=== PATIENT | female | born 1970 | race Caucasian/White ===

== ENCOUNTER 2017-08-31 14:48 | Emergency (ER) | payer MEDICAID ==
[~2017-08-31] VITALS: Ht 165.1 cm; Wt 79.0 kg
[~2017-08-31 14:48] MED LIST: ALBU18HF INH; ASPI-496 PO; DULO60CA7 PO; ESOM40CA PO; GABA300C10 PO; HYDR-3240 PO; METH750T2 PO; METO-93 PO; RIZA10TA34 PO; SIMV20TA3 PO; SUMA25TA3 PO; TOPI50TA35 PO; TRAZ100T15 PO
[2017-08-31 14:52] VITALS: BP 121/75
[2017-08-31] MEDS ORDERED: BACITRACIN ZINC OINT 500U/GM, 0.9 GM ONE (15:29)
== END 2017-08-31 15:47 | disposition home or self-care (01) ==
LOC: ED 15:41
DX: L03.113 Cellulitis of right upper limb (principal); L03.115 Cellulitis of right lower limb; M54.9 Dorsalgia, unspecified; G89.29 Other chronic pain; I10 Essential (primary) hypertension; E11.9 Type 2 diabetes mellitus without complications; J44.9 Chronic obstructive pulmonary disease, unspecified; K22.70 Barrett's esophagus without dysplasia; Z90.49 Acquired absence of other specified parts of digestive tract
CPT/HCPCS: 99283

== ENCOUNTER 2017-11-29 13:37 | Emergency (ER) | payer MEDICAID ==
[~2017-11-29] VITALS: Ht 165.1 cm; Wt 78.4 kg
[2017-11-29 13:46] VITALS: BP 106/60
== END 2017-11-29 17:02 | disposition left against medical advice (07) ==
LOC: ED 16:06
DX: J11.1 Influenza due to unidentified influenza virus with other respiratory manifestations (principal); Z53.21 Procedure and treatment not carried out due to patient leaving prior to being seen by health care provider
CPT/HCPCS: 99285

== ENCOUNTER 2018-04-08 17:42 | Emergency (ER) | payer MEDICAID ==
[~2018-04-08] VITALS: Ht 165.1 cm; Wt 84.9 kg
[2018-04-08 18:13] VITALS: BP 120/85
== END 2018-04-08 18:46 | disposition home or self-care (01) ==
LOC: ED 18:26
DX: B02.9 Zoster without complications (principal); I10 Essential (primary) hypertension; J44.9 Chronic obstructive pulmonary disease, unspecified; F17.200 Nicotine dependence, unspecified, uncomplicated; Z88.0 Allergy status to penicillin; Z88.5 Allergy status to narcotic agent
CPT/HCPCS: 93005; 99283

== ENCOUNTER 2018-04-29 19:54 | Emergency (ER) | payer MEDICAID ==
[~2018-04-29] VITALS: Ht 165.1 cm; Wt 81.5 kg
[2018-04-29] MEDS ORDERED: ONDANSETRON ODT 4 MG PO ONE (20:30)
[2018-04-29] MEDS ORDERED: ONDANSETRON ODT 4 MG ONE (20:41)
[2018-04-29 20:44] LABS: BASOPHILS # (AUTO) 0.05 x10^3/uL (0-0.1); BASOPHILS % (AUTO) 1 % (0-1); EOSINOPHILS # (AUTO) 0.08 x10^3/uL (0-0.4); EOSINOPHILS % (AUTO) 1 % (1-7); LYMPHOCYTES # (AUTO) 2.72 x10^3/uL (1-3.4); LYMPHOCYTES % (AUTO) 34 % (22-44); MD NO; MEAN CORPUSCULAR HEMOGLOBIN 30.8 pg (27.0-34.8); MEAN CORPUSCULAR HGB CONC 33.4 g/dL (32.4-35.8); MEAN CORPUSCULAR VOLUME 92.1 fL (80-100); MEAN PLATELET VOLUME 8.2 fL (7.4-10.4); MONOCYTES # (AUTO) 0.63 x10^3/uL (0.2-0.8); MONOCYTES % (AUTO) 8 % (2-9); NEUTROPHILS # (AUTO) 4.44 x10^3/uL (1.8-6.8); NEUTROPHILS % (AUTO) 56 % (42-75); PLATELET COUNT 284 x10^3/uL (130-400); RED BLOOD COUNT 4.42 x10^6/uL (3.82-5.3); RED CELL DISTRIBUTION WIDTH 12.4 % (9.6-15.2)
[2018-04-29 20:57] LABS: CHLORIDE 105 mmol/L (98-107)
[2018-04-29 20:58] LABS: ALANINE AMINOTRANSFERASE 29 U/L (12-78); ALBUMIN 3.9 g/dL (3.4-5.0); ANION GAP 5 mmol/L (5-15); CALCIUM 9.4 mg/dL (8.5-10.1); CREATININE 0.75 mg/dL (0.55-1.02)
[2018-04-29 21:00] LABS: ALKALINE PHOSPHATASE 77 U/L (45-117); BILIRUBIN,TOTAL 0.4 mg/dL (0.2-1.0); TOTAL PROTEIN 7.6 g/dL (6.4-8.2)
[2018-04-29 21:43] VITALS: BP 121/68
== END 2018-04-29 21:46 | disposition home or self-care (01) ==
LOC: ED 21:35
DX: A09 Infectious gastroenteritis and colitis, unspecified (principal); I10 Essential (primary) hypertension; E11.9 Type 2 diabetes mellitus without complications; J44.9 Chronic obstructive pulmonary disease, unspecified; F17.200 Nicotine dependence, unspecified, uncomplicated; Z88.2 Allergy status to sulfonamides; Z88.0 Allergy status to penicillin
CPT/HCPCS: 36415; 80053; 83690; 85025; 99284; Q0162

== ENCOUNTER 2019-01-12 11:42 | Observation (INO) | payer MEDICAID ==
[~2019-01-12] VITALS: Ht 165.1 cm; Wt 84.9 kg
[~2019-01-12 11:42] MED LIST changes: +TRAZ-137 PO; -TRAZ100T15 PO
[2019-01-12] MEDS ORDERED: ASPIRIN 81 MG TABLET CHEW ONE (12:23)
[2019-01-12] MEDS ORDERED: NITROGLYCERIN SINGLE TAB 0.4 MG SL ONE (12:23)
[2019-01-12] MEDS: NITROGLYCERIN SINGLE TAB 0.4 MG SL PRN ×3 (12:26→12:38)
[2019-01-12] MEDS ORDERED: SODIUM CHLORIDE FLUSH 10ML SYR IVF ONE (12:30)
[2019-01-12] MEDS ORDERED: ASPIRIN 81 MG TABLET CHEW PO ONE (12:30)
[2019-01-12] MEDS ORDERED: DULO60CA7 PO (13:16)
[2019-01-12] MEDS ORDERED: RANI-448 PO (13:16)
[2019-01-12 13:28] LABS: BASOPHILS # (AUTO) 0.03 x10^3/uL (0-0.1); BASOPHILS % (AUTO) 0 % (0-1); EOSINOPHILS # (AUTO) 0.08 x10^3/uL (0-0.4); EOSINOPHILS % (AUTO) 1 % (1-7); LYMPHOCYTES # (AUTO) 2.29 x10^3/uL (1-3.4); LYMPHOCYTES % (AUTO) 35 % (22-44); MD NO; MEAN CORPUSCULAR HEMOGLOBIN 30.9 pg (27.0-34.8); MEAN CORPUSCULAR HGB CONC 34.2 g/dL (32.4-35.8); MEAN CORPUSCULAR VOLUME 90.4 fL (80-100); MEAN PLATELET VOLUME 8.4 fL (7.4-10.4); MONOCYTES # (AUTO) 0.57 x10^3/uL (0.2-0.8); MONOCYTES % (AUTO) 9 % (2-9); NEUTROPHILS # (AUTO) 3.54 x10^3/uL (1.8-6.8); NEUTROPHILS % (AUTO) 54 % (42-75); PLATELET COUNT 282 x10^3/uL (130-400); RED BLOOD COUNT 4.31 x10^6/uL (3.82-5.3); RED CELL DISTRIBUTION WIDTH 12.8 % (9.6-15.2)
--- NOTE | 2019-01-12 13:36 | NUR ---
pt stated still have headache but better now
[2019-01-12 13:37] LABS: ALBUMIN 3.8 g/dL (3.4-5.0); ANION GAP 5 mmol/L (5-15); CALCIUM 8.8 mg/dL (8.5-10.1); CHLORIDE 111 mmol/L (98-107); CREATININE 0.67 mg/dL (0.55-1.02)
[2019-01-12 13:40] LABS: TROPONIN I < 0.015 ng/mL (0.000-0.045)
[2019-01-12] MEDS ORDERED: ACETAMINOPHEN 500 MG TABLET ONE (13:56)
[2019-01-12] MEDS ORDERED: ACETAMINOPHEN 500 MG TABLET PO ONE (14:00)
--- NOTE | 2019-01-12 14:01 | NUR ---
LATE NOTE ENTRY FOR 1219: First contact with pt. Pt c/o 08/15 center chest pain that began at 0900 today. Pt states it is a dull and tight feeling that won't go away. Pt c/o nausea and a headache. Pt connected to all monitors. Call light within reach. All safety measures in place. Pt's friend at bedside.
--- NOTE | 2019-01-12 14:02 | NUR ---
LATE NOTE ENTRY FOR 1238: Pt recieved medication per [facility]. Pt's chest pain resolved after all doses were provided. Pt c/o 0/10 chest pain at this time.
--- NOTE | 2019-01-12 14:03 | NUR ---
Pt resting on gurney connected to all monitors. Provided pt medication per [facility] for c/o headache. Call light within reach. NADN. No needs expressed.
[2019-01-12] MEDS ORDERED: ONDANSETRON ODT 4 MG ONE (14:12)
--- NOTE | 2019-01-12 14:27 | NUR ---
Went to provide medication per [facility]. Pt not in room. Pt transported on gurney to imaging.
[2019-01-12] MEDS ORDERED: ONDANSETRON ODT 4 MG PO ONE (14:30)
--- NOTE | 2019-01-12 14:32 | NUR ---
Pt back to room from imaging. Provided pt medication per [facility].
[2019-01-12] MEDS ORDERED: NITROGLYCERIN 0.4 MG BOTTLE (25 TABS) SL PRN (15:00)
[2019-01-12] MEDS ORDERED: SUMATRIPTAN 25 MG TABLET PO PRN (15:00)
[2019-01-12] MEDS ORDERED: DOCUSATE 100 MG CAPSULE PO PRN (15:00)
[2019-01-12] MEDS ORDERED: ALBUTEROL SULFATE 2.5 MG/3 ML NPPB SCH (15:00)
[2019-01-12] MEDS ORDERED: ONDANSETRON 2MG/ML, 2ML IVPush PRN (15:00)
[2019-01-12] MEDS ORDERED: ENOXAPARIN 40 MG/0.4 ML SQ SCH (15:00)
[2019-01-12] MEDS ORDERED: MAALOX/HYOSCYAMINE/LIDOCAINE 45 ML BTL PO ONE (15:00)
--- NOTE | 2019-01-12 15:05 | NUR ---
Provided report to YVROSE Purvis. All questions answered. Pt ready to transfer to floor from ED.
[2019-01-12] MEDS ORDERED: SUMATRIPTAN 50 MG TABLET ONE (16:29)
[2019-01-12] MEDS: GABAPENTIN 300 MG CAPSULE PO SCH ×2 (16:42→20:44)
[2019-01-12 16:50] VITALS: BP 118/74
[2019-01-12 18:51] VITALS: BP 126/79
[2019-01-12] MEDS: ACETAMINOPHEN 325 MG TABLET PO PRN (20:44)
[2019-01-12] MEDS: FAMOTIDINE 20 MG TABLET PO SCH (20:44)
[2019-01-12 21:17] LABS: TROPONIN I < 0.015 ng/mL (0.000-0.045)
[2019-01-13 02:59] VITALS: BP 108/67
[2019-01-13 06:25] LABS: CHOL/HDL RATIO 5.8; CHOLESTEROL, TOTAL 233 mg/dL (140-239); HDL CHOL % 17 % (28-40); HDL CHOLESTEROL (DIRECT) 40 mg/dL (40-60); LDL CHOLESTEROL,CALCULATED 150 mg/dL (54-169); LDL/HDL RATIO 3.8 (0.5-3.0); TRIGLYCERIDES 215 mg/dL (50-200); TROPONIN I < 0.015 ng/mL (0.000-0.045); VLDL CHOLESTEROL 43 mg/dL (0-25)
[2019-01-13 06:35] LABS: HEMOGLOBIN A1C 6.3 % (4.2-6.3)
[2019-01-13] MEDS: ACETAMINOPHEN 325 MG TABLET PO PRN (06:35)
[2019-01-13 06:53] VITALS: BP 104/68
[2019-01-13] MEDS ORDERED: PANTOPROZOLE 40MG TABLET PO SCH (07:30)
[2019-01-13] MEDS ORDERED: PANT40TA5 PO (08:08)
[2019-01-13] MEDS ORDERED: SUMATRIPTAN 50 MG TABLET ONE (08:35)
[2019-01-13] MEDS: FAMOTIDINE 20 MG TABLET PO SCH (08:37)
[2019-01-13] MEDS: GABAPENTIN 300 MG CAPSULE PO SCH (08:37)
[2019-01-13] MEDS ORDERED: SUMATRIPTAN 25 MG TABLET PO SCH (09:00)
[2019-01-13] MEDS ORDERED: SIMVASTATIN 20 MG TABLET PO SCH (09:00)
[2019-01-13] MEDS ORDERED: DULOXETINE 30 MG CAPSULE.DR PO SCH (09:00)
== END 2019-01-13 15:39 | disposition home or self-care (01) ==
LOC: ED 13:55 → EDIP 14:31 → ED 14:40 → 4WST 15:25
PROVIDERS: ADMIT Hospitalist; ATTEND Hospitalist
DX: R07.89 Other chest pain (principal); K21.9 Gastro-esophageal reflux disease without esophagitis; K22.70 Barrett's esophagus without dysplasia; E11.9 Type 2 diabetes mellitus without complications; J44.9 Chronic obstructive pulmonary disease, unspecified; E66.01 Morbid (severe) obesity due to excess calories; E78.00 Pure hypercholesterolemia, unspecified; F17.200 Nicotine dependence, unspecified, uncomplicated; G25.81 Restless legs syndrome; G43.909 Migraine, unspecified, not intractable, without status migrainosus; I10 Essential (primary) hypertension; I49.9 Cardiac arrhythmia, unspecified; Z82.49 Family history of ischemic heart disease and other diseases of the circulatory system
CPT/HCPCS: 36415; 71045; 71275; 80048; 80061; 82040; 82550; 82552; 83036; 84484; 85025; 85379; 93005; 96372; 99284; G0378; J1650; Q0162

== ENCOUNTER 2019-04-15 07:30 | Emergency (ER) | payer MEDICAID ==
[~2019-04-15] VITALS: Ht 162.6 cm; Wt 88.0 kg
[~2019-04-15 07:30] MED LIST changes: +PANT40TA5 PO; +RANI-448 PO
--- NOTE | 2019-04-15 07:31 | NUR ---
PT BIB [facility], C/O FLANK PAIN. STATES "IT STARTED THIS MORNING" PT JORGE ALBERTO N/V, ZHANG, TRAUMA, DIZZINESS. PT RECIEVED FENTANYL EN ROUTE PER EMS REPORT. PT DOES CONTINUE TO C/O 8/10 L FLANK PAIN. ER PROVIDER IN TO SEE PT. PT TO GO FOR CT ABD.
[2019-04-15] MEDS ORDERED: SODIUM CHLORIDE FLUSH 10ML SYR IVF ONE (08:00)
[2019-04-15] MEDS ORDERED: KETOROLAC 30 MG/1 ML IVPush ONE (08:00)
[2019-04-15] MEDS ORDERED: ONDANSETRON 2MG/ML, 2ML IVPush ONE (08:00)
[2019-04-15] MEDS ORDERED: TAMSULOSIN 0.4 MG CAP.ER.24H PO ONE (08:00)
[2019-04-15] MEDS ORDERED: TAMSULOSIN 0.4 MG CAP.ER.24H ONE (08:07)
--- NOTE | 2019-04-15 08:18 | NUR ---
PATIENT FROM CT. MEDICATION GIVEN. UA COLLECTED
[2019-04-15] MEDS ORDERED: KETOROLAC 30 MG/1 ML ONE (08:26)
[2019-04-15] MEDS ORDERED: ONDANSETRON 2MG/ML, 2ML ONE (08:26)
--- NOTE | 2019-04-15 08:29 | NUR ---
LATE ENTRY 0810. PT BACK FROM CT, AWAITING RESULTS.
[2019-04-15] MEDS ORDERED: HYDROmorphone 2 MG/ML, 1ML IVPush PRN (08:30)
[2019-04-15 08:33] LABS: BASOPHILS # (AUTO) 0.04 x10^3/uL (0-0.1); BASOPHILS % (AUTO) 1 % (0-1); EOSINOPHILS # (AUTO) 0.13 x10^3/uL (0-0.4); EOSINOPHILS % (AUTO) 2 % (1-7); LYMPHOCYTES # (AUTO) 2.74 x10^3/uL (1-3.4); LYMPHOCYTES % (AUTO) 35 % (22-44); MD NO; MEAN CORPUSCULAR HGB CONC 33.4 g/dL (32.4-35.8); MEAN PLATELET VOLUME 7.9 fL (7.4-10.4); MONOCYTES % (AUTO) 8 % (2-9); NEUTROPHILS % (AUTO) 55 % (42-75); PLATELET COUNT 299 x10^3/uL (130-400); RED BLOOD COUNT 4.56 x10^6/uL (3.82-5.3); RED CELL DISTRIBUTION WIDTH 13.1 % (9.6-15.2)
[2019-04-15 08:33] LABS: MICROSCOPIC AUTO
[2019-04-15 08:38] LABS: CULTURE INDICATED? YES
[2019-04-15] MEDS ORDERED: OXYC1TAB7 PO (08:39)
[2019-04-15] MEDS ORDERED: SUCR1TAB33 PO (08:39)
[2019-04-15 08:48] LABS: ALBUMIN 3.8 g/dL (3.4-5.0); ANION GAP 6 mmol/L (5-15); CALCIUM 9.1 mg/dL (8.5-10.1); CHLORIDE 110 mmol/L (98-107)
[2019-04-15 08:53] LABS: ALANINE AMINOTRANSFERASE 38 U/L (12-78); ALKALINE PHOSPHATASE 93 U/L (45-117); BILIRUBIN,TOTAL 0.3 mg/dL (0.2-1.0); CREATININE 0.83 mg/dL (0.55-1.02); TOTAL PROTEIN 7.5 g/dL (6.4-8.2)
--- NOTE | 2019-04-15 09:08 | NUR ---
BREAK RN: PT STATES LEFT FLANK PAIN SOMEWHAT IMPROVED TO 7/10 SINCE MEDICATED FOR SAME.
[2019-04-15 09:55] VITALS: BP 118/77
--- NOTE | 2019-04-15 10:08 | NUR ---
PT GIVEN DISCHARGE INSTRUCTIONS, UNDERSTANDING STATED BY PT. PIV REMOVED, TIP INTACT. VERIFIED ALL BELONGINGS WITH PT ON DISCHARGE. PT ESCORTED TO CHECK OUT
== END 2019-04-15 10:14 | disposition home or self-care (01) ==
LOC: ED 09:03
DX: N39.0 Urinary tract infection, site not specified (principal); J44.9 Chronic obstructive pulmonary disease, unspecified; E11.9 Type 2 diabetes mellitus without complications; G89.29 Other chronic pain; I10 Essential (primary) hypertension; Z90.49 Acquired absence of other specified parts of digestive tract; Z90.710 Acquired absence of both cervix and uterus
CPT/HCPCS: 36415; 74176; 80053; 81001; 85025; 87077; 87086; 87186; 96374; 96375; 99284; J1885; J2405

== ENCOUNTER 2019-09-26 11:22 | Emergency (ER) | payer MEDICAID ==
[~2019-09-26] VITALS: Ht 165.1 cm; Wt 85.7 kg
[~2019-09-26 11:22] MED LIST changes: +OXYC1TAB7 PO; +SUCR1TAB33 PO
[2019-09-26 11:23] VITALS: BP 162/89
--- NOTE | 2019-09-26 11:54 | NUR ---
HOME CARE SPECIALIST: PT TO ROOM FROM LOBBY VIA W/C
[2019-09-26 12:06] LABS: MICROSCOPIC INDICATED
[2019-09-26 12:19] LABS: CULTURE INDICATED? YES
--- NOTE | 2019-09-26 12:30 | NUR ---
PT HAS CO OF ABDOMINAL PAIN W DYSURIA., PT NOT IN DISTRESS
[2019-09-26 12:31] LABS: BASOPHILS # (AUTO) 0.03 x10^3/uL (0-0.1); BASOPHILS % (AUTO) 0 % (0-1); EOSINOPHILS # (AUTO) 0.11 x10^3/uL (0-0.4); EOSINOPHILS % (AUTO) 2 % (1-7); LYMPHOCYTES # (AUTO) 2.08 x10^3/uL (1-3.4); LYMPHOCYTES % (AUTO) 31 % (22-44); MD NO; MEAN CORPUSCULAR HEMOGLOBIN 30.5 pg (27.0-34.8); MEAN CORPUSCULAR HGB CONC 33.1 g/dL (32.4-35.8); MEAN CORPUSCULAR VOLUME 92.3 fL (80-100); MEAN PLATELET VOLUME 7.9 fL (7.4-10.4); MONOCYTES # (AUTO) 0.45 x10^3/uL (0.2-0.8); MONOCYTES % (AUTO) 7 % (2-9); NEUTROPHILS # (AUTO) 4.12 x10^3/uL (1.8-6.8); NEUTROPHILS % (AUTO) 61 % (42-75); PLATELET COUNT 252 x10^3/uL (130-400); RED BLOOD COUNT 4.38 x10^6/uL (3.82-5.3); RED CELL DISTRIBUTION WIDTH 12.8 % (9.6-15.2)
[2019-09-26 12:38] LABS: ALBUMIN 3.6 g/dL (3.4-5.0); ANION GAP 4 mmol/L (5-15); CALCIUM 9.4 mg/dL (8.5-10.1); CHLORIDE 109 mmol/L (98-107)
[2019-09-26 12:40] LABS: ALANINE AMINOTRANSFERASE 30 U/L (12-78); ALKALINE PHOSPHATASE 88 U/L (45-117); BILIRUBIN,TOTAL 0.3 mg/dL (0.2-1.0); CREATININE 0.72 mg/dL (0.55-1.02); TOTAL PROTEIN 7.2 g/dL (6.4-8.2)
== END 2019-09-26 13:33 | disposition home or self-care (01) ==
LOC: ED 13:20
DX: N30.00 Acute cystitis without hematuria (principal); J44.9 Chronic obstructive pulmonary disease, unspecified; E11.9 Type 2 diabetes mellitus without complications; I10 Essential (primary) hypertension; E66.9 Obesity, unspecified; Z90.49 Acquired absence of other specified parts of digestive tract; Z90.710 Acquired absence of both cervix and uterus; Z88.0 Allergy status to penicillin; Z88.2 Allergy status to sulfonamides
CPT/HCPCS: 36415; 76700; 80053; 81001; 83690; 85025; 87077; 87086; 87186; 93005; 99284

== ENCOUNTER 2019-10-04 04:59 | Emergency (ER) | payer MEDICAID ==
[~2019-10-04] VITALS: Ht 165.1 cm; Wt 85.4 kg
[2019-10-04 06:07] LABS: BASOPHILS # (AUTO) 0.03 x10^3/uL (0-0.1); BASOPHILS % (AUTO) 1 % (0-1); EOSINOPHILS # (AUTO) 0.07 x10^3/uL (0-0.4); EOSINOPHILS % (AUTO) 1 % (1-7); LYMPHOCYTES # (AUTO) 1.95 x10^3/uL (1-3.4); LYMPHOCYTES % (AUTO) 29 % (22-44); MD NO; MEAN CORPUSCULAR HEMOGLOBIN 30.3 pg (27.0-34.8); MEAN CORPUSCULAR HGB CONC 32.8 g/dL (32.4-35.8); MEAN CORPUSCULAR VOLUME 92.1 fL (80-100); MEAN PLATELET VOLUME 7.8 fL (7.4-10.4); MONOCYTES # (AUTO) 0.56 x10^3/uL (0.2-0.8); MONOCYTES % (AUTO) 8 % (2-9); NEUTROPHILS % (AUTO) 62 % (42-75); PLATELET COUNT 265 x10^3/uL (130-400); RED BLOOD COUNT 4.31 x10^6/uL (3.82-5.3); RED CELL DISTRIBUTION WIDTH 13.5 % (9.6-15.2)
[2019-10-04 06:10] LABS: MICROSCOPIC INDICATED
[2019-10-04 06:15] LABS: CHLORIDE 110 mmol/L (98-107)
[2019-10-04 06:21] LABS: CULTURE INDICATED? NO
[2019-10-04 06:22] LABS: ALANINE AMINOTRANSFERASE 43 U/L (12-78); ALBUMIN 3.7 g/dL (3.4-5.0); ALKALINE PHOSPHATASE 98 U/L (45-117); ANION GAP 5 mmol/L (5-15); BILIRUBIN,TOTAL 0.3 mg/dL (0.2-1.0); CALCIUM 9.4 mg/dL (8.5-10.1); CREATININE 0.75 mg/dL (0.55-1.02); TOTAL PROTEIN 7.4 g/dL (6.4-8.2)
--- NOTE | 2019-10-04 06:54 | NUR ---
report to lexie kebede
--- NOTE | 2019-10-04 06:55 | NUR ---
REPORT RECIEVED FROM NOC RN. PT RESTING ON GURNEY, AWAITING CT OF ABD, NAD NOTED
--- NOTE | 2019-10-04 07:24 | NUR ---
CT UNABLE TO SCAN UNTIL CODE NEURO IN CT IS FINISHED
[2019-10-04 07:31] VITALS: BP 125/65
--- NOTE | 2019-10-04 07:50 | NUR ---
PT TAKEN CT
--- NOTE | 2019-10-04 09:02 | NUR ---
Patient/Caregiver given discharge instructions and they have confirmed that they understand the instructions. Patient ambulatory with steady gait.
== END 2019-10-04 09:03 | disposition home or self-care (01) ==
LOC: ED 05:43
DX: N20.0 Calculus of kidney (principal); R10.84 Generalized abdominal pain; J44.9 Chronic obstructive pulmonary disease, unspecified; E11.9 Type 2 diabetes mellitus without complications; I10 Essential (primary) hypertension; J45.909 Unspecified asthma, uncomplicated; E66.9 Obesity, unspecified; Z90.49 Acquired absence of other specified parts of digestive tract; Z90.710 Acquired absence of both cervix and uterus
CPT/HCPCS: 36415; 74176; 80053; 81001; 85025; 99284

== ENCOUNTER 2019-11-20 15:19 | Emergency (ER) | payer MEDICAID ==
[~2019-11-20] VITALS: Ht 165.1 cm; Wt 82.5 kg
[2019-11-20 15:21] VITALS: BP 143/77
[2019-11-20] MEDS ORDERED: ASPIRIN 81 MG TABLET CHEW PO ONE (16:00)
[2019-11-20 16:16] LABS: BASOPHILS # (AUTO) 0.04 x10^3/uL (0-0.1); BASOPHILS % (AUTO) 1 % (0-1); EOSINOPHILS # (AUTO) 0.07 x10^3/uL (0-0.4); EOSINOPHILS % (AUTO) 1 % (1-7); LYMPHOCYTES % (AUTO) 38 % (22-44); MD NO; MEAN CORPUSCULAR HGB CONC 33.1 g/dL (32.4-35.8); MEAN CORPUSCULAR VOLUME 90.7 fL (80-100); MEAN PLATELET VOLUME 8.2 fL (7.4-10.4); MONOCYTES % (AUTO) 7 % (2-9); NEUTROPHILS # (AUTO) 4.01 x10^3/uL (1.8-6.8); NEUTROPHILS % (AUTO) 54 % (42-75); PLATELET COUNT 253 x10^3/uL (130-400); RED BLOOD COUNT 4.78 x10^6/uL (3.82-5.3); RED CELL DISTRIBUTION WIDTH 13.4 % (9.6-15.2)
[2019-11-20 16:25] LABS: ALANINE AMINOTRANSFERASE 39 U/L (12-78); ALBUMIN 3.9 g/dL (3.4-5.0); ANION GAP 7 mmol/L (5-15); CALCIUM 10.2 mg/dL (8.5-10.1); CHLORIDE 110 mmol/L (98-107); CREATININE 0.66 mg/dL (0.55-1.02)
[2019-11-20 16:29] LABS: ALKALINE PHOSPHATASE 77 U/L (45-117); BILIRUBIN,TOTAL 0.3 mg/dL (0.2-1.0); TOTAL PROTEIN 7.7 g/dL (6.4-8.2); TROPONIN I < 0.015 ng/mL (0.000-0.045)
--- NOTE | 2019-11-20 19:13 | NUR ---
nil at this time
--- NOTE | 2019-11-20 19:52 | NUR ---
NO ANSWER WHEN PT CALLED FOR REPEAT VITALS @ 1951
--- NOTE | 2019-11-20 20:17 | NUR ---
NO ANSWER WHEN PT CALLED FOR REPEAT VITALS @ 2017
== END 2019-11-20 20:35 | disposition left against medical advice (07) ==
LOC: ED 16:00
DX: R42 Dizziness and giddiness (principal); R55 Syncope and collapse
CPT/HCPCS: 36415; 71045; 80053; 83690; 84484; 85025; 93005; 99284

== ENCOUNTER 2020-02-13 13:43 | Emergency (ER) | payer MEDICAID ==
[~2020-02-13] VITALS: Ht 165.1 cm; Wt 81.0 kg
[~2020-02-13 13:43] MED LIST changes: -RANI-448 PO; +RANI-460 PO; +SIMV20TA19 PO; -SIMV20TA3 PO; -TRAZ-137 PO; +TRAZ-175 PO
[2020-02-13 13:54] VITALS: BP 144/87
--- NOTE | 2020-02-13 13:59 | NUR ---
PT WITH C/O CP BEGINNING AT 0800 THIS AM, STATES 10. 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 PT WITH RECENT "FLU LIKE SYMTOMS" STATES SHE HAS HAS SOME DIARRHEA AND A COUGH A COUPLE WEEKS AGO PT TO BP/CONT PULSE OX/CARD MONITOR. VSS AT THIS TIME. EKG COMPLETED
[2020-02-13] MEDS ORDERED: MAALOX/HYOSCYAMINE/LIDOCAINE 45 ML BTL ONE (14:10)
[2020-02-13] MEDS ORDERED: MAALOX/HYOSCYAMINE/LIDOCAINE 45 ML BTL PO ONE (14:30)
[2020-02-13 14:34] LABS: BASOPHILS # (AUTO) 0.02 x10^3/uL (0-0.1); BASOPHILS % (AUTO) 0 % (0-1); EOSINOPHILS # (AUTO) 0.05 x10^3/uL (0-0.4); EOSINOPHILS % (AUTO) 1 % (1-7); LYMPHOCYTES # (AUTO) 2.46 x10^3/uL (1-3.4); LYMPHOCYTES % (AUTO) 33 % (22-44); MD NO; MEAN CORPUSCULAR HEMOGLOBIN 30.2 pg (27.0-34.8); MEAN CORPUSCULAR HGB CONC 33.2 g/dL (32.4-35.8); MEAN CORPUSCULAR VOLUME 91.1 fL (80-100); MEAN PLATELET VOLUME 7.7 fL (7.4-10.4); MONOCYTES # (AUTO) 0.58 x10^3/uL (0.2-0.8); MONOCYTES % (AUTO) 8 % (2-9); NEUTROPHILS # (AUTO) 4.38 x10^3/uL (1.8-6.8); NEUTROPHILS % (AUTO) 59 % (42-75); PLATELET COUNT 274 x10^3/uL (130-400); RED BLOOD COUNT 4.42 x10^6/uL (3.82-5.3); RED CELL DISTRIBUTION WIDTH 13.1 % (9.6-15.2)
[2020-02-13 14:36] LABS: ALBUMIN 3.9 g/dL (3.4-5.0); ANION GAP 8 mmol/L (5-15); CALCIUM 9.5 mg/dL (8.5-10.1); CHLORIDE 107 mmol/L (98-107); CREATININE 0.68 mg/dL (0.55-1.02)
[2020-02-13 14:40] LABS: TROPONIN I < 0.015 ng/mL (0.000-0.045)
== END 2020-02-13 15:12 | disposition home or self-care (01) ==
LOC: ED 14:27
DX: K29.00 Acute gastritis without bleeding (principal); R07.89 Other chest pain; R19.7 Diarrhea, unspecified; I10 Essential (primary) hypertension; E11.9 Type 2 diabetes mellitus without complications; J44.9 Chronic obstructive pulmonary disease, unspecified
CPT/HCPCS: 36415; 71045; 80048; 82040; 84484; 85025; 93005; 99285